=== PATIENT | female | born 1985 | race Caucasian/White ===

== ENCOUNTER 2019-11-05 09:04 | Emergency (ER) | payer SELFPAY ==
[2019-11-05 09:07] VITALS: BP 127/87; PULSE 92; RESP 18; TEMP 36.8; O2SAT 100; BMI 20.4
--- NOTE | 2019-11-05 09:20 | ED_ITS ---
HPI - Dental/Oral General: Chief complaint: Dental/Oral Stated complaint: tooth pain Time Seen by Provider: 11/05/19 09:20 Source: patient Mode of arrival: ambulatory Limitations: no limitations History of Present Illness: HPI Narrative: dental pain/swelling x yesterday Teeth map: 1. swelling to gingival above; no palpable abscess at this time Onset (ago): day(s) Duration: constant Severity: mild Relieving factors: nothing Exacerbating factors: nothing Context: history of dental caries Associated symptoms: Reports no associated symptoms; Denies fever(s) or painful swallowing Treatment prior to arrival: none Review of Systems Const: Denies: fever or chills ENMT: Denies: throat pain, enlarged tonsils or painful swallowing Card: Denies: chest pain or palpitations Resp: Denies: productive cough GI: Denies: nausea or vomiting PFSH ED PFSH: Statuses (acute, chronic, etc) shown below reflect problem list status as previously entered and may not be historically accurate Social History Smoking and tobacco status: current every day smoker Female Reproductive History: Date of last menstrual period: 10/04/19 Physical Exam Const: COMMON NORMALS: no apparent distress, oriented x3, healthy appearing, alert and well nourished HENMT: COMMON NORMALS: normocephalic, head/scalp atraumatic and external nose normal HEAD & SCALP: normocephalic and atraumatic FACE & SINUS: other (TTP to L sinus/above L upper gumline) NOSE: external nose normal MOUTH: other (floor of mouth is soft ) THROAT: posterior oropharynx normal Neuro: COMMON NORMALS: oriented x3 SENSORIUM/ORIENTATION: Yes alert Course Vital Signs: Vital signs: Vital Signs Temperature 98.3 F 11/05/19 09:07 Pulse Rate 92 11/05/19 09:07 Respiratory Rate 18 11/05/19 09:07 Blood Pressure 127/87 11/05/19 09:07 Pulse Oximetry 100 11/05/19 09:07 Discharge Plan Discharge Patient Disposition: Home, Self-Care Clinical Impression: Dental caries, Dental abscess Condition: Stable Prescriptions: New clindamycin HCl 150 mg capsule 300 mg PO QID 7 Days Qty: 56 RF: 0 No Action ibuprofen 200 mg Tablet 400 mg PO Q6H PRN (Reason: Pain) RF: 0 Discharge Orders: Discharge Order (Routine); Ordered 11/05/19 Ordered By: Lucia Leach Discharge Diet: Advance as tolerated Discharge Activity: Resume usual activity Patient Instructions: Dental Abscess (ED), Dental Caries (ED) Activity Restrictions/Additional Instructions: Follow up with dentist as soon as possible. Return to ED for worsening symptoms. Discharge Date/Time: 11/05/19 10:09 Coding Level of Care Code ED Service And Repair Supervisor for Yoseph Sifuentes
[2019-11-05] MEDS: clindamycin 150 mg/mL SDV 6 mL 600 MG IM (10:09)
== END 2019-11-05 10:09 | disposition home or self-care (01) ==
PROVIDERS: Emergency Provider Physician Assistant
DX: K04.7 Periapical abscess without sinus (principal); K02.9 Dental caries, unspecified; F17.210 Nicotine dependence, cigarettes, uncomplicated
CPT/HCPCS: 96372; 99281; J3490

== ENCOUNTER 2019-11-08 10:13 | Emergency (ER) | payer SELFPAY ==
[2019-11-08 10:43] VITALS: BP 106/71; PULSE 88; RESP 16; TEMP 36.5; O2SAT 99; BMI 21.7
--- NOTE | 2019-11-08 10:54 | USR_ITS ---
PROCEDURE INFORMATION: Exam: US Pelvis, Transvaginal Exam date and time: 11/08/2019 11:56 AM Age: 34 years old Clinical indication: Other: Vaginal bleeding; Additional info: 5 weeks, bleeding. Labs not available yet TECHNIQUE: Imaging protocol: Real-time transvaginal pelvic ultrasound with image documentation. Transvaginal imaging was used for better evaluation of the endometrium and adnexa. COMPARISON: No relevant prior studies available. FINDINGS: Uterus/cervix: Retroverted uterus measuring 7.9 x 5.2 x 6 cm. Prominent endometrial echo stripe measuring 1.7 cm. No endometrial cavity fluid or gestational sac. Right adnexa: Normal follicular appearing right ovary. No mass. Normal ovarian blood flow. Left adnexa: Normal follicular appearing left ovary. No mass. Normal ovarian blood flow. Free fluid: Small amount of cul-de-sac free fluid. US/US transvaginal [id number] IMPRESSION: 1) no intrauterine or ectopic gestation evident at this time. Clinical and sonographic followup recommended as needed. 2) retroverted uterus with prominent endometrium. Normal follicular appearing ovaries. 3) small amount of nonspecific cul-de-sac fluid.
--- NOTE | 2019-11-08 10:57 | W.ED.GENADLT ---
HPI - General Adult General: Chief complaint: Vaginal Bleeding Stated complaint: vag bleeding at 5 weeks, patient reports that she learned she was last week. Patient had bleeding 2 days ago that was just spotting. Patient noticed more spotting today and some increase in flow. Patient denies any pain. Patient appears well. Patient is presently on clindamycin for a dental infection which is improving. Time Seen by Provider: 11/08/19 10:53 Source: patient Mode of arrival: ambulatory Limitations: no limitations Review of Systems General: Reports: 10 or more systems reviewed and unremarkable except in HPI and below : Reports: vaginal bleeding (5 weeks ) PFSH ED PFSH: Statuses (acute, chronic, etc) shown below reflect problem list status as previously entered and may not be historically accurate Social History Smoking and tobacco status: current every day smoker Female Reproductive History: Date of last menstrual period: 10/04/19 Physical Exam Const: COMMON NORMALS: no apparent distress and oriented x3 GENERAL APPEARANCE: cooperative HENMT: COMMON NORMALS: normocephalic, external ears normal, EAC's normal, TM's normal bilaterally and external nose normal HEAD & SCALP: normal to inspection and normocephalic FACE & SINUS: normal facial exam NOSE: external nose normal GENERAL EAR: hearing grossly impaired EXTERNAL EAR: Yes external ears normal EXTERNAL AUDITORY CANAL: EAC's normal TYMPANIC MEMBRANE: TM's normal bilaterally MOUTH: oral and palatal mucosa normal THROAT: posterior oropharynx normal Eye: COMMON NORMALS: PERRL and EOMs intact bilaterally PUPIL: Yes PERRL Neck/C-Spine: COMMON NORMALS: full ROM and no lymphadenopathy Lymph: LYMPHATIC: no lymphedema noted Chest: COMMONS NORMALS: inspection of chest normal and palpation of chest normal Resp: COMMON NORMALS: normal respiratory effort and clear to auscultation bilaterally AUSCULTATION: clear to auscultation bilaterally Cardio: COMMON NORMALS: regular rate and regular rhythm RATE: regular rate RHYTHM: regular rhythm GI: COMMON NORMALS: normal to inspection, nondistended, normoactive bowel sounds and non-tender : COMMON NORMALS: Yes no CVA tenderness BLADDER/KIDNEY EXAM: Yes no CVA tenderness Back/Pelvis: COMMON NORMALS: no CVA tenderness and thoracic and lumbar spine normal to inspection Extremity: COMMON NORMALS: normal to inspection GENERAL: No edema Neuro: COMMON NORMALS: oriented x3, moves all extremities and no focal motor deficits Psych: COMMON NORMALS: mental status grossly normal and cooperative Skin: COMMON NORMALS: no rashes or lesions noted GENERAL SKIN EXAM: no rashes or lesions noted Course Vital Signs: Vital signs: Vital Signs Temperature 97.7 F 11/08/19 10:43 Pulse Rate 83 11/08/19 12:00 Respiratory Rate 17 11/08/19 12:00 Blood Pressure 108/67 11/08/19 12:00 Pulse Oximetry 98 11/08/19 12:00 MDM - General Adult MDM Narrative: Medical decision making narrative: Patient comes in today for concerns of bleeding and early . Patient thinks that she is about 5 weeks . Patient had a positive test 1 week ago. Exam notes abdomen soft nontender. Skin is warm and dry color is pink. Respirations are even lungs are clear to auscultation. No swelling in the extremities. Differential diagnosis includes miscarriage, threatened , urinary tract infection, ectopic . Laboratory values were insignificant. hCG level was less than 22. Ultrasound noted no sac in the uterus. Reviewed exam with patient recommended treatment with plenty of fluids and activity as tolerated continue routine medications. Follow-up with primary care in 1 week. Return to the ER as needed. Patient reports understanding. Lab Data: Labs: Lab Results 11/08/19 11/08/19 11/08/19 Range/Units 11:04 11:13 11:13 WBC 7.0 (4.0-10.0) 10^3/ uL RBC 4.10 (4.1-5.3) 10^6/u L Hgb 12.0 (11.5-15.3) g/dL Hct 36.9 L (37.0-47.0) % MCV 90.0 (81-99) fL MCH 29.3 (28.0-34.0) pg MCHC 32.5 (30.0-36.0) g/dL RDW 13.3 (12.1-15.1) % Plt Count 271 (130-400) 10^3/c mm MPV 11.1 H (7.4-10.4) fL Neut % (Auto) 63.4 % Lymph % (Auto) 26.9 % [place] % (Auto) 7.4 % Eos % (Auto) 1.6 % Baso % (Auto) 0.4 % Neut # (Auto) 4.4 (1.8-7.7) 10^3/u L Lymph # (Auto) 1.9 (0.8-4.8) 10^3/u L [place] # (Auto) 0.5 (0.2-0.9) 10^3/u L Eos # (Auto) 0.1 (0.0-0.8) 10^3/u L Baso # (Auto) 0.0 (0.0-0.1) 10^3/u L Nucleated RBC % (a uto) 0 % Nucleated RBCs # 0.0 /100WBC Sodium 137 (136-145) mmol/L Potassium 4.1 (3.5-5.1) mmol/L Chloride 100 (98-107) mmol/L Carbon Dioxide 25 (22-29) mmol/L Anion Gap 16.1 (5-19) BUN 11 (6-20) mg/dL Creatinine 0.6 (0.5-0.9) mg/dL GFR Calculation 115.1 (90-130) mL/min Glucose 94 (74-109) mg/dL Calcium 9.6 (8.6-10.0) mg/Dl Total Bilirubin 0.3 (0.15-1.2) mg/dL AST 45 H (0-32) U/L ALT 55 H (0-33) U/L Alkaline Phosphata se 91 (35-105) IU/L Total Protein 7.3 (6.6-8.7) g/dL Albumin 5.3 H (3.5-5.2) g/dL Globulin 2.0 (1.3-4.6) g/dL Ser , Nic i-Qnt 22.60 mIU/mL Urine Color Yellow (Yellow) Urine Appearance Sl hazy (CLEAR) Urine pH 5 (5-7) Ur Specific Gravit y 1.020 (1.005-1.030) Urine Protein Neg (Negative) Urine Glucose (UA) Norm (Normal) Urine Ketones 1+ H (Negative) Urine Occult Blood 3+ H (Negative) Urine Nitrate Negative (Negative) Urine Bilirubin Neg (NEGATIVE) Urine Urobilinogen Norm (Negative) mg/dL Ur Leukocyte Jessica ase Negative (Negative) Urine RBC 5-10 H (0-2) /hpf Urine WBC Rare (0-5) /hpf Ur Squamous Epith Cells 10-15 H (0-5) Urine Bacteria Trace (NONE) Urine Mucus 2+ Discharge Plan Discharge Patient Disposition: Home, Self-Care Clinical Impression: Miscarriage Condition: Stable Prescriptions: No Action ibuprofen 200 mg Tablet 400 mg PO Q6H PRN (Reason: Pain) RF: 0 clindamycin HCl 150 mg capsule 300 mg PO QID 7 Days Qty: 56 RF: 0 Discharge Diet: Usual diet Discharge Activity: Resume usual activity Activity Restrictions/Additional Instructions: Drink plenty of fluids Activity as tolerated Acetaminophen as needed for pain Healthy diet and exercise Return to ER for high fever or bleeding greater than 1 saturated pad an hour or new concerns Follow-up with primary care in am Coding Level of Care Code ED Predatory Animal Exterminator for Yoseph Sifuentes Exam Problem Focused
[2019-11-08 11:23] VITALS: BP 114/65; PULSE 64; RESP 16; O2SAT 99
--- NOTE | 2019-11-08 11:26 | PC.NURSE ---
US at bedside
[2019-11-08 11:29] LABS: Bilirubin Urine Neg (NEGATIVE); Blood Urine 3+ (Negative); Glucose Urine UA Norm (Normal); Ketones Urine 1+ (Negative); Leukocyte Esterase Urine Negative (Negative); Nitrate Urine Negative (Negative); Protein Urine Neg (Negative); Urine Appearance SL Hazy (CLEAR); Urine Color Yellow (Yellow); Urobilinogen Urine Norm (Negative); pH Urine 5 (5-7)
[2019-11-08 11:30] LABS: Bacteria Urine TRACE; WBC Urine RARE /hpf (0-5)
[2019-11-08 11:31] LABS: Mucus Urine 2+
[2019-11-08 11:32] LABS: Add Urine Culture? No
[2019-11-08 11:32] LABS: Basophils % 0.4 %; Eosinophils # 0.1 10^3/uL (0.0-0.8); Eosinophils % 1.6 %; Hematocrit 36.9 % (37.0-47.0); Lymphocytes # 1.9 10^3/uL (0.8-4.8); Lymphocytes % 26.9 %; Mean Corpuscular HGB Conc 32.5 g/dL (30.0-36.0); Mean Corpuscular Hemoglobin 29.3 pg (28.0-34.0); Mean Platelet Volume 11.1 fL (7.4-10.4); Monocytes # 0.5 10^3/uL (0.2-0.9); Monocytes % 7.4 %; Neutrophils # 4.4 10^3/uL (1.8-7.7); Neutrophils % 63.4 %; Nucleated Red Blood Cells % 0 %; Platelet Count 271 10^3/cmm (130-400); Red Cell Distribution Width 13.3 % (12.1-15.1)
[2019-11-08 12:00] VITALS: BP 108/67; PULSE 83; RESP 17; O2SAT 98
[2019-11-08 12:05] LABS: Alanine Aminotransferase 55 U/L (0-33); Albumin Level 5.3 g/dL (3.5-5.2); Alkaline Phosphatase 91 IU/L (35-105); Anion Gap 16.1 (5-19); Aspartate Amino Transferase 45 U/L (0-32); Blood Urea Nitrogen 11 mg/dL (6-20); Calcium 9.6 mg/Dl (8.6-10.0); Carbon Dioxide 25 mmol/L (22-29); Chloride 100 mmol/L (98-107); Glomerular Filtration Rate 115.1 mL/min (90-130); Glucose 94 mg/dL (74-109); Potassium 4.1 mmol/L (3.5-5.1); Sodium 137 mmol/L (136-145); Total Bilirubin 0.3 mg/dL (0.15-1.2); Total Protein 7.3 g/dL (6.6-8.7)
[2019-11-08 12:28] VITALS: BP 108/67; PULSE 83; RESP 17; O2SAT 98
== END 2019-11-08 12:36 | disposition home or self-care (01) ==
PROVIDERS: Emergency Provider Nurse Practitioner Family
DX: O03.9 Complete or unspecified spontaneous abortion without complication (principal); O99.331 Smoking (tobacco) complicating pregnancy, first trimester; F17.210 Nicotine dependence, cigarettes, uncomplicated; Z3A.01 Less than 8 weeks gestation of pregnancy
CPT/HCPCS: 36415; 76830; 80053; 81001; 84702; 85025; 86900; 99282; A9270